=== PATIENT | male | born 1965 | race Caucasian/White ===

== ENCOUNTER 2016-06-23 18:36 | Emergency (ER) | payer OTHER ==
[2016-06-23 19:42] VITALS: BP 120/71; PULSE 70; RESP 20; TEMP 98.7; O2SAT 96
== END 2016-06-23 19:10 | disposition home or self-care (01) ==
LOC: ED 18:36
DX: S01.01XA Laceration without foreign body of scalp, initial encounter (principal); W22.09XA Striking against other stationary object, initial encounter
CPT/HCPCS: 12001; 99283; G0168